=== PATIENT | male | born 1950 | race Caucasian/White ===

== ENCOUNTER 2021-03-05 08:15 | Inpatient (IN) | payer OTHER, SELFPAY ==
[~2021-03-05] VITALS: Ht 193 cm; Wt 101.2 kg
[~2021-03-05 08:15] MED LIST: AMIO200T5 PO; RIVA15TA PO
[2021-03-05 08:23] VITALS: BP_SYST 140
[2021-03-05 08:55] LABS: BASOPHILS # (AUTO) 0.1 K/uL (0.0-0.2); BASOPHILS % (AUTO) 1.3 % (0.0-2.0); EOSINOPHILS # (AUTO) 0.1 K/uL (0.0-0.4); HEMATOCRIT 46.1 % (36-54); HEMOGLOBIN 15.6 g/dL (14.0-18.0); LYMPHOCYTES # (AUTO) 1.2 K/uL (1.0-5.5); LYMPHOCYTES % (AUTO) 25.8 % (20.5-51.5); MEAN CORPUSCULAR HEMOGLOBIN 33 pg (27-31); MEAN CORPUSCULAR HGB CONC 34 % (32-36); MEAN CORPUSCULAR VOLUME 97 fL (79.0-98.0); MONOCYTES # (AUTO) 0.4 K/uL (0.0-1.0); NEUTROPHILS # (AUTO) 2.9 K/uL (1.8-7.7); NEUTROPHILS % (AUTO) 60.9 % (40.0-70.0); PLATELET COUNT (AUTO) 194 K/uL (130-430); RED BLOOD CELL COUNT(AUTO) 4.73 MIL/uL (4.2-6.2); RED CELL DISTRIBUTION WIDTH 13.1 % (9.0-15.0); WHITE BLOOD COUNT (AUTO) 4.8 K/uL (4.8-10.8)
[2021-03-05 09:03] LABS: ANION GAP 8 (5-15); CHLORIDE 106 mmol/L (98-107); CREATININE 0.93 mg/dL (0.55-1.30); GLUCOSE 122 mg/dL (70-99); POTASSIUM 4.2 mmol/L (3.5-5.1); SODIUM SERUM 143 mmol/L (136-145); UREA NITROGEN, BLOOD 18 mg/dL (8-21)
[2021-03-05 09:09] LABS: ALANINE AMINOTRANSFERASE 31 U/L (12-78); ALBUMIN 3.6 g/dL (3.4-4.8); ASPARTATE AMINOTRANSFERASE 17 U/L (10-37)
[2021-03-05] MEDS ORDERED: CLOPIDOGREL BISULFATE 75 MG TABLET PO ONE (09:15)
[2021-03-05] MEDS ORDERED: ASPIRIN 81 MG TAB.CHEW PO ONE (09:15)
[2021-03-05 09:29] LABS: PROTHROMBIN TIME 10.4 SECS (9.5-12.5)
[2021-03-05] MEDS ORDERED: IOHEXOL 350 mgI/mL, 150 ML INFUS..BTL IV ONE (09:29)
[2021-03-05 14:25] VITALS: BP_SYST 135
[2021-03-05 14:26] VITALS: BP_SYST 135
[2021-03-05 16:00] VITALS: BP_SYST 132
[2021-03-05 20:00] VITALS: BP_SYST 136
[2021-03-06 01:20] VITALS: BP_SYST 114
[2021-03-06 08:00] VITALS: BP_SYST 144
[2021-03-06] MEDS: ASPIRIN 81 MG TAB.CHEW PO SCH (09:53)
[2021-03-06 11:09] LABS: CHOLESTEROL 169 mg/dL (<200); HDL CHOLESTEROL 39 mg/dL (>45); LDL CHOLESTEROL 122 mg/dL (<100); TRIGLYCERIDES 97 mg/dL (30-150)
[2021-03-06 12:21] VITALS: BP_SYST 132
[2021-03-06] MEDS ORDERED: RIVAROXABAN 10 MG TABLET PO SCH (18:00)
[2021-03-06 18:32] VITALS: BP_SYST 136
[2021-03-06 20:00] VITALS: BP_SYST 140
[2021-03-07 00:40] VITALS: BP_SYST 126
[2021-03-07] MEDS: ASPIRIN 81 MG TAB.CHEW PO SCH (09:08)
[2021-03-07] MEDS ORDERED: LIP20 PO (10:31)
[2021-03-07] MEDS ORDERED: RIVA20TA PO (10:31)
[2021-03-07] MEDS ORDERED: ASPI-1457 PO (10:32)
[2021-03-07 10:33] VITALS: BP_SYST 142
[2021-03-07 10:37] VITALS: BP_SYST 142
[2021-03-07] MEDS ORDERED: RIVAROXABAN 10 MG TABLET PO SCH (18:00)
[2021-03-08] MEDS ORDERED: ATORVASTATIN 20 MG TABLET PO SCH (09:00)
== END 2021-03-07 11:20 | disposition home health service (06) | DRG 66 ==
LOC: SED 08:15 → STU 11:15
PROVIDERS: ADMIT Internal Medicine Hospice and Palliative Medicine; ATTEND Internal Medicine Hospice and Palliative Medicine
PROC: 4A10X4Z Monitoring of Central Nervous Electrical Activity, External Approach (ICD-10-PCS; principal; 2021-03-06)
DX: I63.40 Cerebral infarction due to embolism of unspecified cerebral artery (principal); I48.91 Unspecified atrial fibrillation; R47.01 Aphasia; Z20.822 Contact with and (suspected) exposure to COVID-19; Z96.651 Presence of right artificial knee joint; I10 Essential (primary) hypertension; R29.700 NIHSS score 0; Z79.899 Other long term (current) drug therapy; Z79.82 Long term (current) use of aspirin; Z79.01 Long term (current) use of anticoagulants; Z86.711 Personal history of pulmonary embolism
CPT/HCPCS: 36415; 70450-TC; 70496; 70498; 70551; 71045; 76376; 80053; 80061; 82962; 83036; 84484; 85025; 85610-TC; 85730-TC; 86886; 86900; 86901; 93005; 93306; 95816; 99291; G0378; Q9967